=== PATIENT | female | born 1970 | race American Indian/Alaskan Native ===

== ENCOUNTER 2018-02-07 13:25 | Emergency (ER) | payer OTHER ==
--- NOTE | 2018-02-07 14:44 | XRay Report ---
Right hand 3 views: History: Trauma, pain. Findings: No bony or articular abnormality. No fracture dislocation or periosteal reaction. Impression: No evidence of acute fracture.
[2018-02-07] MEDS ORDERED: TORADOL IM ONE (15:37)
--- NOTE | 2018-02-07 15:48 | Emergency Department Report ---
ED Upper Extremity Inj HPI - General Chief Complaint: Extremity Injury, Upper Stated Complaint: HAND INJURY Source: patient Mode of arrival: Ambulatory Limitations: No Limitations - History of Present Illness Initial Comments: 47-year-old female with past medical history presents to the hospital complains of swelling and pain to right hand after injury at work. 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 While cleaning a bed part of the bed frame fell across the fingers of her right hand. Patient complains of 9/10 aching pain that is constant and worse with movement and palpation. She is right-hand dominant. - Related Data Previous Rx's Medication Instructions Recorded Last Taken Type Ibuprofen [Motrin] 800 mg PO Q8HR PRN #30 tablet 02/07/18 Unknown Rx traMADol [Ultram 50 MG tab] 50 mg PO Q6HR PRN #20 tablet 02/07/18 Unknown Rx Allergies Allergy/AdvReac Type Severity Reaction Status Date / Time dextromethorphan Allergy Rash Verified 02/07/18 13:42 [From [facility]ULTON] [email or web address] Allergy Rash Verified 02/07/18 13:42 [From [facility]aria FULTON] ED Review of Systems ROS: Stated complaint: HAND INJURY Other details as noted in HPI Comment: All other systems reviewed and negative ED Past Medical Hx - Past Medical History Previous Medical History?: No - Surgical History Past Surgical History?: No - Social History Smoking Status: Never Smoker Substance Use Type: None - Medications Home Medications: Home Medications Medication Instructions Recorded Confirmed Last Taken Type Ibuprofen [Motrin] 800 mg PO Q8HR PRN #30 tablet 02/07/18 Unknown Rx traMADol [Ultram 50 MG tab] 50 mg PO Q6HR PRN #20 tablet 02/07/18 Unknown Rx ED Physical Exam - General Limitations: No Limitations - Other Other exam information: General: No limitations, patient is alert in no acute distress Head exam: Atraumatic, normocephalic Eyes exam: Normal appearance ENT: Moist mucous membrane, normal oropharynx Neck exam: Normal inspection, full range of motion, no meningismus nontender Respiratory exam: Clear to auscultation bilateral, no wheezes, rales, crackles Cardiovascular: Normal rate and rhythm, normal heart sounds Abdomen: Soft, nondistended, and nontender, with normal bowel sounds, no rebound, or guarding Extremity: No deformity, no swelling, tenderness along all fingers without hand or wrist tenderness. 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 no snuff box tenderness. Finger abduction and adduction intact Back: Normal Inspection, full range of motion, no tenderness Neurologic: Alert, oriented x3, cranial nerves intact, no motor or sensory deficit Psychiatric: normal affect, normal mood Skin: Warm, dry, intact ED Course Vital Signs 02/07/18 13:37 Temperature 97.9 F Pulse Rate 99 H Respiratory 16 Rate Blood Pressure 144/91 O2 Sat by Pulse 99 Oximetry - Reevaluation(s) Reevaluation #1: 02/07/18 15:46 Toradol for pain ED Medical Decision Making - Radiology Data Radiology results: report reviewed Right hand 3 views: History: Trauma, pain. Findings: No bony or articular abnormality. No fracture dislocation or periosteal reaction. Impression: No evidence of acute fracture. - Medical Decision Making Right hand contusion No signs of fracture Will be discharged home on anti-inflammatories and PMD follow - Differential Diagnosis fracture, contusion, sprain Critical Care Time: No Critical care attestation.: If time is entered above; I have spent that time in minutes in the direct care of this critically ill patient, excluding procedure time. ED Disposition Clinical Impression: Contusion of right hand Disposition: [id number] TO HOME OR SELFCARE Is pt being admited?: No Does the pt Need Aspirin: No Condition: Stable Instructions: Hand Sprain (ED) Additional Instructions: Take the medication as prescribed. Follow-up with your doctor. Return if symptoms worsen as indicated by your discharge instructions. Prescriptions: Ibuprofen [Motrin] 800 mg PO Q8HR PRN #30 tablet PRN Reason: Pain traMADol [Ultram 50 MG tab] 50 mg PO Q6HR PRN #20 tablet PRN Reason: Pain Referrals: DEANN JOHN MD [Primary Care Provider] - 3-5 Days Time of Disposition: 15:49
[2018-02-07 16:16] VITALS: BP 135/88
== END 2018-02-07 16:16 | disposition home or self-care (01) ==
LOC: ED 13:25
DX: S60.221A Contusion of right hand, initial encounter (principal); Z88.8 Allergy status to other drugs, medicaments and biological substances; W22.8XXA Striking against or struck by other objects, initial encounter; Y93.89 Activity, other specified; Y92.89 Other specified places as the place of occurrence of the external cause; Y99.8 Other external cause status
CPT/HCPCS: 73130; 96372; 99283; J1885